=== PATIENT | male | born 1950 | race Caucasian/White ===

== ENCOUNTER 2019-09-19 09:51 | Day surgery (SDC) | payer OTHER ==
[~2019-09-19] VITALS: Ht 170.2 cm; Wt 108.9 kg
--- NOTE | 2019-09-19 10:19 | NUR ---
09/19/19 Kaushal9 Krystyna Bradley 1 TRY HAND RIGHT BLEW 2 TRY UPPER RIGHT ARM BLEW 3 TRY UPPER RIGHT GOOD
== END 2019-09-19 11:34 | disposition home or self-care (01) ==
LOC: ORSCSDS 09:51
PROVIDERS: Internal Medicine Gastroenterology
PROC: 0DBP8ZX Excision of Rectum, Via Natural or Artificial Opening Endoscopic, Diagnostic (ICD-10-PCS; principal; 2019-09-19 11:15)
DX: K62.5 Hemorrhage of anus and rectum (principal); Z86.010 Personal history of colon polyps; K62.1 Rectal polyp; K64.8 Other hemorrhoids; K57.30 Diverticulosis of large intestine without perforation or abscess without bleeding; Z98.84 Bariatric surgery status; E66.9 Obesity, unspecified; Z68.38 Body mass index [BMI] 38.0-38.9, adult; Z87.891 Personal history of nicotine dependence
CPT/HCPCS: 88305; J2704; J7120